=== PATIENT | female | born 2005 | race Caucasian/White ===

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

== ENCOUNTER 2024-05-17 12:15 | Outpatient (CLI) | payer BC, SELFPAY ==
[2024-05-21 02:54] LABS: DHEA-Sulfate 277 mcg/dL (44-286); FSH 6.3 mIU/mL; Progesterone 0.8 ng/mL; Prolactin 7.9 ng/mL
[2024-05-22 15:08] LABS: Testosterone Free 3.1 pg/mL (0.1-6.4); Testosterone Total 16 ng/dL (2-45)
[2024-05-25 22:03] LABS: Estradiol, Ultrasensitive 21 pg/mL
== END 2024-05-17 12:16 | disposition home or self-care (01) ==
LOC: ANHLAB 12:16
PROVIDERS: PCP Nurse Practitioner Pediatrics; Visit Provider Obstetrics & Gynecology
DX: N92.6 Irregular menstruation, unspecified (principal)
CPT/HCPCS: 36415; 82627; 82670; 83001; 83498; 84144; 84146; 84402; 84403; 84443